=== PATIENT | female | born 1975 | race Caucasian/White ===

== ENCOUNTER 2023-03-09 17:59 | Emergency (ER) | payer OTHER, MEDICAID, SELFPAY ==
--- NOTE | 2023-03-09 18:21 | DI.RAD.S_ITS ---
PROCEDURE: XR CHEST 1V INDICATIONS: Shortness of breath TECHNIQUE: One view of the chest was acquired. COMPARISON: None. FINDINGS: Surgical changes and devices: None. Lungs and pleura: Lungs are clear. No pleural effusions or pneumothorax. Mediastinum: Mediastinal contours appear normal. Heart size is normal. Bones and chest wall: No suspicious bony lesions. Overlying soft tissues appear unremarkable. IMPRESSION: No acute cardiopulmonary process. Dictated by: Micheal Florian M.D. on 03/09/2023 at 18:47 Approved by: Micheal Florian M.D. on 03/09/2023 at 18:47
[2023-03-09 18:22] VITALS: BP 142/82; PULSE 90; RESP 22; TEMP 36.4; O2SAT 94; BMI 25.4
--- NOTE | 2023-03-09 19:41 | ED_ITS ---
HPI - General Adult General Chief complaint: Shortness of Breath/Dyspnea Stated complaint: Pneumonia Hx Time Seen by Provider: 03/09/23 18:52 Source: patient Mode of arrival: Family Vehicle History of Present Illness HPI narrative: 47-year-old woman with a history of mild intermittent asthma he is had upper respiratory type symptoms for the past 2 weeks. Was seen at a walk-in clinic and diagnosed with pneumonia due to wheezing in the upper lung sahni treated with ceftriaxone and amoxicillin which did not help her symptoms. Over the last 24-48 hours she feels like her allergies are worsening and now is having quite a bit of nasal discharge and simply feels that she can not breathe at all. She describes no fevers. The nasal discharge and anything she is coughing up is clear. She is still having quite a bit of coughing. She is not having chest pain beyond that related to cough, no palpitation, no fevers, no abdominal pain Related Data Previous Rx's Medication Instructions Recorded albuterol sulfate 2.5 mg/3 mL 2.5 mg (3 mL) inhalation QID PRN 03/09/23 (0.083 %) solution for nebulization shortness of breath or wheezing #90 mL albuterol sulfate 90 mcg/actuation 2 puff inhalation Q4-6H PRN 03/09/23 aerosol inhaler shortness of breath or wheezing #8.5 grams fluticasone propionate 110 1 puff inhalation BID #12 grams 03/09/23 mcg/actuation HFA aerosol inhaler (Flovent HFA) prednisone 20 mg tablet 20 mg PO DAILY #14 tabs 03/09/23 Allergies Allergy/AdvReac Type Severity Reaction Status Date / Time narcotic AdvReac Uncoded 03/09/23 18:31 Review of Systems Review of Systems Narrative: Pertinent positive and negative findings as per HPI Patient History Medical History (Updated 03/09/23 @ 21:11 by Kathy Schaeffer MD) Asthma Social History Smoking Status: Current every day smoker Smoking Status: Current every day smoker tobacco type: cigarettes alcohol intake frequency: 0-2 drinks per day Substance Use Type: does not use Exam Initial Vital Signs Initial Vital Signs: Vital Signs Temperature 97.6 F 03/09/23 18:22 Pulse Rate 90 03/09/23 18:22 Respiratory Rate 22 05/01/23 18:22 Blood Pressure 142/82 H 03/09/23 18:22 Pulse Oximetry 94 03/09/23 18:22 Oxygen Delivery Method Room Air 03/09/23 18:22 General: Healthy appearing, in mild respiratory distress. Able to give a complete and coherent history. Well-nourished well-developed HEENT: Moist mucous membranes, normal sclera with reactive pupils, minor clear nasal discharge Neck: No JVD, supple Respiratory: Lungs with scattered wheezing all lung sahni, slightly diminished air movement. She is able to speak in complete sentences. Cardiac: Regular rate and rhythm no murmurs no bruits Abdomen: Soft, nontender, good bowel tones, no flank pain Skin: Warm and dry, no rashes Neurologic: Grossly neurologically intact with no obvious asymmetries or abnormalities Extremities: No trauma, well perfused Psych: Cooperative, appropriate insight and affect Course Orders Ordered: ED Orders 03/09/23 18:21 XR chest 1V Stat EKG-12 Lead Stat Measure peak expiratory flow ONCE RT Consult Eval and Treat NOW Discontinued Medications Albuterol (Albuterol 2.5 Mg/3 Ml Neb (Adult)) 2.5 mg INH NOW ONE Stop: 03/09/23 21:04 Last Admin: 03/09/23 21:12 Dose: 2.5 mg Documented By: ERLINDA Albuterol/Ipratropium (Albuterol/Ipratropium 3 Ml Ampul) 3 ml INH NOW ONE Stop: 03/09/23 20:12 Last Admin: 03/09/23 20:18 Dose: 3 ml Documented By: ERLINDA Ondansetron HCl (Ondansetron 4 Mg/2 Ml Inj) 4 mg IV NOW ONE Stop: 03/09/23 21:04 Last Admin: 03/09/23 21:23 Dose: Not Given Documented By: DEYVI Ondansetron HCl (Ondansetron 4 Mg Odt) 4 mg SL NOW ONE Stop: 03/09/23 21:23 Last Admin: 03/09/23 21:26 Dose: 4 mg Documented By: DEYVI Prednisone (Prednisone 20 Mg Tablet) 60 mg PO NOW ONE Stop: 03/09/23 20:12 Last Admin: 03/09/23 20:19 Dose: 60 mg Documented By: DEYVI Vital Signs Vital signs: Vital Signs - 8 hr 03/09/23 18:22 03/09/23 21:07 Temperature 97.6 F Pulse Rate 90 82 Respiratory Rate 22 20 Blood Pressure 142/82 H 142/74 H Pulse Oximetry 94 96 Oxygen Delivery Method Room Air Room Air Medical Decision Making MDM Narrative Medical decision making narrative: CC: Acute asthma exacerbation Complicating co-morbidities: Asthma Data collected from: patient, Social determinants of health that may influence the patients condition: Has been trying for a number of months to contact her primary care physician and has not received calls back. Has gone to the pharmacy to get medication refills and the pharmacy has not tried to contact the physician to facilitate refills either Differential considered: Acute asthma exacerbation, viral syndrome, bacterial pneumonia, acute sinusitis, cardiac wheeze Exam documented above, pertinent findings include: Moderate diffuse wheeze and moderate decreased air movement. No consolidated findings to suggest pneumonia Lab Test are not indicated with today's visit Imaging studies independently reviewed: Chest x-ray shows no acute consolidated findings, no pneumothorax Treatments: Oral prednisone, DuoNeb Re-eval: 9pm patient is definitely moving more air and clearly having increasing wheezing. Sats remain in the 96-98% range. She would very much like to avoid IV and I think this is completely reasonable. She is slightly nauseated from all of the nasal discharge. Will give her some Zofran, encourage her to drink a large glass of water and use another albuterol nebulizer and re-evaluate. Discussion: Patient with mild intermittent asthma she does have Flovent 115/20 salmeterol Advair inhaler and over the last couple days has increased to using this as she is feeling that her nebulizer and albuterol inhaler has not been effective. At this point there is no evidence of bacterial pneumonia. I believe all of this started with a viral exacerbation and now she has an acute asthma exacerbation. Reviewed with her the importance of using the Advair as a preventive used twice a day and not as a rescue inhaler. Will refill this for her. She does need a course of prednisone as this has been ongoing and increasing over the last 2-3 weeks will recommend a 7 day course prescription will be given. We will refill both albuterol nebulized solution and albuterol MDI. Encouraged her to continue to try to get in contact with her primary care doctor for follow-up visits and if she is unable to do so to consider trying to change physicians. We did discuss the difficulty in accessing primary care in current circumstances with most practice is completely full and booked out for extended periods of time. She is not currently in severe respiratory distress, will not need hospitalization or advanced imaging. Lab work is not required today. Questions are answered and she will be safe for discharge home Discharge Plan Departure Patient Disposition: Home Clinical Impression: Acute viral syndrome Asthma with exacerbation Qualifiers: Asthma severity: mild Asthma persistence: persistent Qualified Code(s): J45.31 - Mild persistent asthma with (acute) exacerbation Instructions: DI for Asthma -- Adult Activity Restrictions/Additional Instructions: Thank you for coming in today I do think that you started out with a mild viral syndrome (which is likely why the antibiotics did not help too much) and the virus has exacerbated your asthma. In the emergency room you are given 60 mg of prednisone, oral nausea medication, a DuoNeb as well as a plain albuterol nebulizer. You clearly have improved but clearly have some time to continue healing You will need to finish 7 days of prednisone. Please use your Flovent (the purple preventive inhaler) morning and night, 1 puff only Use albuterol and that can either be as a nebulizer or 2 puffs with your metered-dose inhaler and spacer every 4 hours Consider a very small dose of Sudafed in the morning to help with daytime stuffiness. Consider using Afrin at night to help with nighttime stuffiness. All prescriptions were electronically transmitted to [facility] If you are getting worse, you need to return to the ER. Prescriptions: New prednisone 20 mg tablet 20 mg PO DAILY Qty: 14 0RF Rx Instructions: 40mg daily for 4 days, then 20mg daily for 4 days, then 10mg daily for 4 days albuterol sulfate 2.5 mg /3 mL (0.083 %) solution for nebulization 2.5 mg inhalation QID PRN (Reason: shortness of breath or wheezing) Qty: 90 2RF fluticasone propionate [Flovent HFA] 110 mcg/actuation HFA aerosol inhaler 1 puff inhalation BID Qty: 12 2RF albuterol sulfate 90 mcg/actuation HFA aerosol inhaler 2 puff inhalation Q4-6H PRN (Reason: shortness of breath or wheezing) Qty: 8.5 2RF Stand Alone Forms: Patient Portal/API
[2023-03-09] MEDS: ALBUTEROL/IPRATROPIUM 3 ML AMPUL INH (20:18)
[2023-03-09] MEDS: predniSONE 20 MG TABLET 60 MG PO (20:19)
[2023-03-09 21:07] VITALS: BP 142/74; PULSE 82; RESP 20; O2SAT 96
[2023-03-09] MEDS: ALBUTEROL 2.5 MG/3 ML NEB (ADULT) INH (21:12)
[2023-03-09] MEDS: ONDANSETRON 4 MG ODT SL (21:26)
== END 2023-03-09 21:39 | disposition home or self-care (01) ==
PROVIDERS: Emergency Provider Emergency Medicine
DX: J45.31 Mild persistent asthma with (acute) exacerbation (principal); B34.9 Viral infection, unspecified; F17.200 Nicotine dependence, unspecified, uncomplicated
CPT/HCPCS: 71045; 99283; 99284; J7613